=== PATIENT | female | born 1990 | race Caucasian/White ===

== ENCOUNTER 2017-04-11 10:29 | Emergency (ER) | payer OTHER ==
[~2017-04-11] VITALS: Ht 157.5 cm; Wt 77.2 kg
[~2017-04-11 10:29] MED LIST: ACET-704 PO; MUPI15CR TP; SULF1TAB24 PO
[2017-04-11 10:45] VITALS: BP 126/76
[2017-04-11] MEDS ORDERED: IV NORMAL SALINE 1,000ML 1,000 ML IV ONE (11:00)
[2017-04-11] MEDS ORDERED: PENICILLIN G BENZATHINE LA 1,200,000 UNIT/2 ML DISP.SYRIN. IM ONE (11:30)
[2017-04-11] MEDS ORDERED: DEXAMETHASONE SOD PHOS 10 MG/ML VIAL IV ONE (11:30)
--- NOTE | 2017-04-11 11:31 | PHYS DOC ---
Past History Past Medical History: Hypertension Past Surgical History: Other Alcohol Use: None Drug Use: None Adult General Chief Complaint Chief Complaint: SORE THROAT HPI HPI Patient is a 26 year old female who presents with sore throat. The patient reports sore throat since yesterday with painful swallowing. She denies fevers/ chills, nasal congestion/rhinorrhea, cough, chest pain, shortness of breath. Had diarrhea until yesterday, none today, denies nausea, vomiting, abdominal pain. Has had decreased PO intake because of diarrhea & now sore throat. She is previously healthy. No known ill contacts. Review of Systems Review of Systems Constitutional: Denies fever or chills Eyes: Denies change in visual acuity HENT: Denies nasal congestion, reports sore throat Respiratory: Denies cough or shortness of breath Cardiovascular: Denies chest pain GI: Denies abdominal pain, nausea, vomiting, reports diarrhea : Denies dysuria Musculoskeletal: Denies back pain or joint pain Integument: Denies rash Neurologic: Denies headache Current Medications Current Medications Current Medications Medications (Trade) Dose Ordered Sig/Esequiel Start Time Stop Time Status Last Admin Dose Admin Dexamethasone Sodium Phosphate (Decadron) 10 mg 1X ONCE 04/11/17 11:30 04/11/17 11:31 04/11/17 11:27 10 MG Penicillin G Benzathine (Bicillin L-A) 1,200,000 unit 1X ONCE 04/11/17 11:30 04/11/17 11:31 04/11/17 11:28 1,200,000 UNIT Sodium Chloride 1,000 ml @ 1,000 mls/hr 1X ONCE 04/11/17 11:00 04/11/17 11:59 04/11/17 11:00 1,000 MLS/HR Allergies Allergies Allergies Coded Allergies Type Severity Reaction Last Updated Verified lisinopril Allergy Intermediate Hives 08/15/16 Yes Physical Exam Physical Exam Constitutional: obese, no acute distress, non-toxic appearance. HENT: Normocephalic, atraumatic, bilateral external ears normal, oropharynx moist, posterior oropharynx erythematous with bilateral tonsillar enlargement & white exudate, nose normal. Eyes: conjunctiva normal, no discharge. Neck: supple, no stridor. no cervical lymphadenopathy. Cardiovascular: tachycardic 100s, regular, no murmurs, no edema. Lungs & Thorax: LCTAB, no wheezing, no respiratory distress. Abdomen: soft, nontender, nondistended. Skin: Warm, dry, no erythema, no rash. Back: No tenderness. Extremities: No tenderness, no edema. Neurologic: Alert and oriented X 3 Current Patient Data Vital Signs Vital Signs Date Time Temp Pulse Resp B/P (MAP) Pulse Ox O2 Delivery O2 Flow Rate FiO2 04/11/17 10:45 98.5 104 20 97 Room Air Lab Results Laboratory Tests Test 04/11/17 10:40 Group A Streptococcus Rapid Positive (NEGATIVE) EKG EKG [] Radiology/Procedures Radiology/Procedures [] Course & Med Decision Making Course & Med Decision Making Pertinent Labs and Imaging studies reviewed. (See chart for details) The patient presents with sore throat. She was afebrile but slightly tachycardic in low 100s, decreased PO intake. Gave IV fluids & decadron. Rapid strep was positive. Gave bicillin. She felt better after treatment here. Recommend rest, hydration, tylenol/ibuprofen for pain or fever. Follow up with PCP in 2-3 days if not improving. Come back for difficulty breathing or swallowing, or any otherwise worsening condition. Discharged home in stable condition. The patient also notes that she has red non-pruritic lesion to her umbilicus not improving with steroid cream. The area is mildly erythematous, no warmth, swelling, drainage. Gave clotrimazole cream, follow up with PCP if not improving in 2-3 days. [] Dragon Disclaimer Dragon Disclaimer This chart was dictated in whole or in part using Voice Recognition software in a busy, high-work load, and often noisy Emergency Department environment. It may contain unintended and wholly unrecognized errors or omissions. Departure Departure: Impression: Primary Impression: Strep pharyngitis Disposition: 01 HOME, SELF-CARE Condition: STABLE Patient Instructions: Strep Throat, [id number] Additional Instructions: You were seen in the emergency department today for strep throat. You were treated with antibiotics here. Please rest, drink fluids to stay hydrated, take Tylenol or ibuprofen for pain or fever. Follow-up as needed with primary care physician if not improving in 2-3 days. Return to the emergency department for difficulty breathing or swallowing, any otherwise worsening condition. Scripts Clotrimazole (CLOTRIMAZOLE) 15 Gm Cream..g. 1 MOHSEN TP BID, #30 GM Prov: DECLAN PARRA MD 04/11/17 DECLAN PARRA MD Apr 11, 2017 11:31
[2017-04-11] MEDS ORDERED: CLOT15CR4 TP (12:24)
== END 2017-04-11 12:27 | disposition home or self-care (01) ==
LOC: ER 10:29
DX: J02.0 Streptococcal pharyngitis (principal); R19.7 Diarrhea, unspecified; I10 Essential (primary) hypertension; Z88.8 Allergy status to other drugs, medicaments and biological substances
CPT/HCPCS: 87880; 96361; 96372; 96374; 99284; J0561; J1100; J7030

== ENCOUNTER 2017-05-08 14:50 | Emergency (ER) | payer OTHER ==
[~2017-05-08] VITALS: Ht 157.5 cm; Wt 83.9 kg
[~2017-05-08 14:50] MED LIST changes: +CLOT15CR4 TP
--- NOTE | 2017-05-08 14:58 | PHYS DOC ---
Past History Past Medical History: Hypertension Past Surgical History: Other Alcohol Use: None Drug Use: None Adult General Chief Complaint Chief Complaint: BACK PAIN OR INJURY HPI HPI Patient is a 26-year-old female presenting to the emergency department for evaluation of low back pain that is radiating down her right leg. She says that she has had low back pain issues for years and it has been reading down her left leg for years however today she had worsening right-sided back pain radiating down her right leg. 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 He says that she has no weakness numbness tingling bowel or bladder incontinence but she says it is very painful to put pressure on her right leg to the point she does not want to walk on her right leg because of the pain. She has never seen anyone for her back pain and never had any imaging done. Review of Systems Review of Systems Constitutional: Denies fever or chills [] Musculoskeletal: + back pain. No joint pain [] Neurologic: Denies focal weakness or sensory changes [] All other systems were reviewed and found to be within normal limits, except as documented in this note. Allergies Allergies Allergies Coded Allergies Type Severity Reaction Last Updated Verified lisinopril Allergy Intermediate Hives 08/15/16 Yes Physical Exam Physical Exam Constitutional: Well developed, well nourished, no acute distress, non-toxic appearance. [] Back: + R lumbar paraspinal tenderness, no CVA tenderness. [] Extremities: No tenderness, no cyanosis, no clubbing, ROM intact, no edema. [] Neurologic: Alert and oriented X 3, normal motor function, normal sensory function, no focal deficits noted. [] EKG EKG [] Radiology/Procedures Radiology/Procedures Lumbar spine, 3 views, 05/08/2017: History: Low back pain There is a minimal lumbar scoliosis. The lumbar vertebral heights are well-maintained. The intervertebral disc spaces are well preserved. No fracture or dislocation is identified. There is a small sclerotic focus projected over the right posterolateral aspect of the L3 vertebral body along the inferior base of the right pedicle. The paraspinous soft tissues are unremarkable. IMPRESSION: 1. No acute bony abnormality is detected. 2. Minimal lumbar scoliosis. 3. Small sclerotic focus in the L3 vertebral body. While this may be a bone island, a radionuclide bone scan may be useful in excluding an active process such as an osteoid osteoma or a blastic metastasis, if clinically indicated. DICTATED AND SIGNED BY: AMITA COLLINS MD DATE: 05/08/17 2906 Course & Med Decision Making Course & Med Decision Making Patient has 5 out of 5 strength in bilateral knee and ankle and big toe flexion extension and she has no red flag signs or symptoms necessitating an emergent MRI. She can walk it just hurts her to do so. Pain has improved in the emergency department after receiving Toradol [place] and Valium and Decadron. She was told to go home follow with her primary care provider on Thursday take ibuprofen for pain and will prescribe [place] and Valium for breakthrough symptoms. She was told to come back to the emergency Department immediately with worsening pain weakness incontinence or other general concerns. Patient aware and agreeable with plan for discharge and verbalized understanding of the above instructions. Dragon Disclaimer Dragon Disclaimer This electronic medical record was generated, in whole or in part, using a voice recognition dictation system. Departure Departure: Impression: Primary Impression: Back pain Additional Impression: Lumbar radiculopathy, acute Disposition: , SELF-CARE Condition: STABLE Referrals: PCP,UNKNOWN (PCP) Patient Instructions: Sciatica Additional Instructions: TAKE 400MG OF IBUPROFEN EVERY 6 HOURS AND THE NORCO FOR BREAKTHROUGH PAIN. FOLLOW WITH YOUR PCP SOON YOU CAN AND COME BACK TO THE ED FOR WORSENING PAIN, WEAKNESS, INCONTINENCE OR OTHER GENERAL CONCERNS. THANK YOU! Scripts Diazepam (VALIUM) 5 Mg Tablet 5 MG PO BID Y for SPASM, #10 TAB Prov: NIKKY CABALLERO DO 05/08/17 Hydrocodone Bit/Acetaminophen (NORCO 5-325 TABLET) 1 Each Tablet 1 TAB PO PRN Q6HRS Y for PAIN, #20 TAB 0 Refills Prov: NIKKY CABALLERO DO 05/08/17 Problem Qualifiers Primary Impression: Back pain Back pain location: low back pain Chronicity: acute Back pain laterality: right Sciatica presence: with sciatica Sciatica laterality: sciatica of right side Qualified Codes: M54.41 - Lumbago with sciatica, right side NIKKY CABALLERO DO May 08, 2017 14:58
[2017-05-08] MEDS ORDERED: HYDROcodone/APAP 5/325MG 1 TAB TABLET PO ONE (16:00)
[2017-05-08] MEDS ORDERED: diazePAM 5 MG TABLET PO ONE (16:00)
[2017-05-08] MEDS ORDERED: DEXAMETHASONE 4 MG TABLET PO ONE (16:00)
[2017-05-08] MEDS ORDERED: KETOROLAC 60 MG/2 ML VIAL. IM ONE (16:00)
--- NOTE | 2017-05-08 16:12 | RAD ---
Lumbar spine, 3 views, 05/08/2017: History: Low back pain There is a minimal lumbar scoliosis. The lumbar vertebral heights are well-maintained. The intervertebral disc spaces are well preserved. No fracture or dislocation is identified. There is a small sclerotic focus projected over the right posterolateral aspect of the L3 vertebral body along the inferior base of the right pedicle. The paraspinous soft tissues are unremarkable. IMPRESSION: 1. No acute bony abnormality is detected. 2. Minimal lumbar scoliosis. 3. Small sclerotic focus in the L3 vertebral body. While this may be a bone island, a radionuclide bone scan may be useful in excluding an active process such as an osteoid osteoma or a blastic metastasis, if clinically indicated.
[2017-05-08] MEDS ORDERED: DIAZ5TAB PO (16:19)
[2017-05-08] MEDS ORDERED: HYDR-971 PO (16:19)
[2017-05-08 16:38] VITALS: BP 135/73
== END 2017-05-08 16:35 | disposition home or self-care (01) ==
LOC: ER 14:50
DX: M54.16 Radiculopathy, lumbar region (principal); M54.41 Lumbago with sciatica, right side; I10 Essential (primary) hypertension; Z88.8 Allergy status to other drugs, medicaments and biological substances
CPT/HCPCS: 72100; 96372; 99284; J1885; J8540

== ENCOUNTER → 2017-08-19 | Outpatient (CLI) | payer OTHER ==
[~2017-08-19] MED LIST changes: +DIAZ5TAB PO; +HYDR-971 PO; +IOHEXOL 300 MG/ML 75 ML VIAL. IV ONE
--- NOTE | 2017-08-19 10:14 | RAD ---
CT Abdomen and Pelvis With Intravenous Contrast: History: Diarrhea for 4 months. Left flank pain. Comparison: None. Technique: After administration of oral and intravenous contrast, 75 mL Omnipaque-300, CT of the abdomen and pelvis was performed. Exposure: One or more of the following individualized dose reduction techniques were utilized for this examination: 1. Automated exposure control 2. Adjustment of the mA and/or kV according to patient size 3. Use of iterative reconstruction technique Findings: Liver, spleen, pancreas, gallbladder, and right adrenal gland are unremarkable. Left adrenal gland demonstrates 2.3 cm nodule. Bilateral kidneys enhance symmetrically. Appendix is without evidence of inflammation. No bowel obstruction or inflammation is seen. Urinary bladder is unremarkable. Uterus and adnexa have unremarkable CT appearance. No free air is identified. Small amount of physiologic free fluid is present in the pelvis. Impression: 1. No acute abnormality identified in the abdomen or pelvis to explain patient's symptoms. 2. 2.3 cm left adrenal nodule. If no history of malignancy, most likely etiology is adenoma. If clinically indicated, further evaluation could be made with adrenal mass protocol MRI versus CT. Electronically signed by: Kamlesh Augustine MD (08/19/2017 10:11 AM) [place] [id number]
== END | disposition home or self-care (01) ==
LOC: CT 08:25
PROVIDERS: ATTEND Nurse Practitioner Family
DX: R10.9 Unspecified abdominal pain (principal); R11.0 Nausea; R19.7 Diarrhea, unspecified; Z83.79 Family history of other diseases of the digestive system
CPT/HCPCS: 74177

== ENCOUNTER 2018-04-26 18:29 | Emergency (ER) | payer OTHER ==
[~2018-04-26] VITALS: Ht 157.5 cm; Wt 77.2 kg
[~2018-04-26 18:29] MED LIST changes: +HYDR-3165 PO; -HYDR-971 PO; -IOHEXOL 300 MG/ML 75 ML VIAL. IV ONE
[2018-04-26] MEDS ORDERED: KETOROLAC 60 MG/2 ML VIAL. IM ONE (19:00)
[2018-04-26 19:23] LABS: BASO % 0 % (0-3); EOS # 0.1 x10^3/uL (0.0-0.7); EOS % 1 % (0-3); HEMATOCRIT 42.1 % (36.0-47.0); HEMOGLOBIN 14.7 g/dL (12.0-15.5); LYMPH # 3.1 x10^3/uL (1.0-4.8); LYMPH % 28 % (24-48); MEAN CORPUSCULAR HEMOGLOBIN 31 pg (25-35); MEAN CORPUSCULAR HGB CONC 35 g/dL (31-37); MEAN CORPUSCULAR VOLUME 89 fL (79-100); MONO # 0.6 x10^3/uL (0.0-1.1); MONO % 5 % (0-9); NEUT # 7.2 x10^3uL (1.8-7.7); NEUT % 65 % (31-73); PLATELET COUNT 412 x10^3/uL (140-400); RED BLOOD COUNT 4.72 x10^6/uL (3.50-5.40); RED CELL DISTRIBUTION WIDTH 12.3 % (11.5-14.5)
--- NOTE | 2018-04-26 19:23 | PHYS DOC ---
Adult General Chief Complaint Chief Complaint CHEST PAIN HPI HPI 27 years old female presented to the emergency department with left back chest pain. Described as a sharp pleuritic in nature no fever no chills no urgency no frequency no hematuria, He experienced this pain in the past that resulted on its own Position not related to the pain Review of Systems Review of Systems Constitutional: Denies fever or chills [] Eyes: Denies change in visual acuity, redness, or eye pain [] HENT: Denies nasal congestion or sore throat [] Respiratory: Denies cough or shortness of breath [] Cardiovascular: No additional information not addressed in HPI [] GI: Denies abdominal pain, nausea, vomiting, bloody stools or diarrhea [] : Denies dysuria or hematuria [] Musculoskeletal: Denies back pain or joint pain [] Integument: Denies rash or skin lesions [] Neurologic: Denies headache, focal weakness or sensory changes [] Endocrine: Denies polyuria or polydipsia [] All other systems were reviewed and found to be within normal limits, except as documented in this note. Current Medications Current Medications Current Medications Medications (Trade) Dose Ordered Sig/Esequiel Start Time Stop Time Status Last Admin Dose Admin Ketorolac Tromethamine (Toradol Im) 60 mg 1X ONCE 04/26/18 19:00 04/26/18 19:01 DC 04/26/18 19:04 60 MG Allergies Allergies Allergies Coded Allergies Type Severity Reaction Last Updated Verified lisinopril Allergy Intermediate Hives 05/08/17 Yes Physical Exam Physical Exam Constitutional: Well developed, well nourished, no acute distress, non-toxic appearance. [] HENT: Normocephalic, atraumatic, bilateral external ears normal, oropharynx moist, no oral exudates, nose normal. [] Eyes: PERRLA, EOMI, conjunctiva normal, no discharge. [] Neck: Normal range of motion, no tenderness, supple, no stridor. [] Cardiovascular:Heart rate regular rhythm, no murmur [] Lungs & Thorax: Bilateral breath sounds clear to auscultation []chest wall tenderness on the back Abdomen: Bowel sounds normal, soft, no tenderness, no masses, no pulsatile masses. [] Skin: Warm, dry, no erythema, no rash. [] Back: No tenderness, no CVA tenderness. [] Extremities: No tenderness, no cyanosis, no clubbing, ROM intact, no edema. [] Neurologic: Alert and oriented X 3, normal motor function, normal sensory function, no focal deficits noted. [] Psychologic: Affect normal, judgement normal, mood normal. [] Current Patient Data Vital Signs Vital Signs Date Time Temp Pulse Resp B/P (MAP) Pulse Ox O2 Delivery O2 Flow Rate FiO2 04/26/18 18:35 99.3 105 18 95 Room Air Lab Results Laboratory Tests Test 04/26/18 18:57 04/26/18 19:08 White Blood Count 11.0 x10^3/uL (4.0-11.0) Red Blood Count 4.72 x10^6/uL (3.50-5.40) Hemoglobin 14.7 g/dL (12.0-15.5) Hematocrit 42.1 % (36.0-47.0) Mean Corpuscular Volume 89 fL (79-100) Mean Corpuscular Hemoglobin 31 pg (25-35) Mean Corpuscular Hemoglobin Concent 35 g/dL (31-37) Red Cell Distribution Width 12.3 % (11.5-14.5) Platelet Count 412 x10^3/uL (140-400) H Neutrophils (%) (Auto) 65 % (31-73) Lymphocytes (%) (Auto) 28 % (24-48) Monocytes (%) (Auto) 5 % (0-9) Eosinophils (%) (Auto) 1 % (0-3) Basophils (%) (Auto) 0 % (0-3) Neutrophils # (Auto) 7.2 x10^3uL (1.8-7.7) Lymphocytes # (Auto) 3.1 x10^3/uL (1.0-4.8) Monocytes # (Auto) 0.6 x10^3/uL (0.0-1.1) Eosinophils # (Auto) 0.1 x10^3/uL (0.0-0.7) Basophils # (Auto) 0.0 x10^3/uL (0.0-0.2) D-Dimer (Aparna) 0.33 mg/L (0.00-0.50) Sodium Level 138 mmol/L (136-145) Potassium Level 3.8 mmol/L (3.5-5.1) Chloride Level 100 mmol/L (98-107) Carbon Dioxide Level 27 mmol/L (21-32) Anion Gap 11 (6-14) Blood Urea Nitrogen 18 mg/dL (7-20) Creatinine 0.8 mg/dL (0.6-1.0) Estimated GFR (Cockcroft-Gault) 85.4 Glucose Level 111 mg/dL (70-99) H Calcium Level 9.0 mg/dL (8.5-10.1) POC Urine HCG, Qualitative hcg negative (Negative) EKG EKG [] Radiology/Procedures Radiology/Procedures [] Course & Med Decision Making Course & Med Decision Making Pertinent Labs and Imaging studies reviewed. (See chart for details) [] Final Impression Final Impression [] Problems: (1) Back pain Qualifiers: Qualified Codes: M54.6 - Pain in thoracic spine Dragon Disclaimer Dragon Disclaimer This electronic medical record was generated, in whole or in part, using a voice recognition dictation system. RAQUEL SIMMS MD Apr 26, 2018 19:23
[2018-04-26 19:31] LABS: CREATININE 0.8 mg/dL (0.6-1.0); GFR 85.4; POTASSIUM 3.8 mmol/L (3.5-5.1)
[2018-04-26 19:38] VITALS: BP 126/80
[2018-04-26] MEDS ORDERED: ACET-704 PO (19:55)
[2018-04-26] MEDS ORDERED: PRED20TA PO (19:55)
--- NOTE | 2018-04-26 19:58 | RAD ---
PROCEDURE: CHEST PA LATERAL CLINICAL INDICATION: Left sided chest and upper back pain COMPARISON: None FINDINGS: No pneumothorax identified. Cardiac and mediastinal contours unremarkable. No pulmonary consolidation or acute airspace disease. No acute osseous abnormalities identified. IMPRESSION: No pulmonary consolidation or acute airspace disease. Electronically signed by: Jaycob Guzmán DO (04/26/2018 7:55 PM) [facility]
== END 2018-04-26 20:06 | disposition home or self-care (01) ==
LOC: ER 18:29
DX: M54.6 Pain in thoracic spine (principal); R07.89 Other chest pain; Z88.8 Allergy status to other drugs, medicaments and biological substances
CPT/HCPCS: 36415; 71046; 80048; 81025; 85025; 85379; 96372; 99284; J1885

== ENCOUNTER 2018-07-08 08:51 | Inpatient (IN) | payer OTHER ==
[~2018-07-08] VITALS: Ht 157.5 cm; Wt 86.7 kg
[~2018-07-08 08:51] MED LIST changes: +PRED20TA PO
[2018-07-08] MEDS ORDERED: IV NORMAL SALINE 1,000ML 1,000 ML IV SCH (09:17)
[2018-07-08] MEDS ORDERED: IOHEXOL 300 MG/ML 75 ML VIAL. IV ONE (09:30)
--- NOTE | 2018-07-08 09:33 | PHYS DOC ---
Past History Past Medical History: Hypertension Past Surgical History: Tubal ligation Smoking: Non-smoker Alcohol Use: None Drug Use: None Adult General Chief Complaint Chief Complaint: ABDOMINAL PAIN HPI HPI Patient is a 27 year old female who presents with complaining of abdominal pain. Patient complaining of sudden onset of generalized abdominal pain that started 2 days ago as a constant pain that getting more localizing lower abdomen today. Patient complaining of one episode of vomiting 3 days ago with constant nausea and decrease of appetite. Patient states she did not have bowel movement for 2 days and took a laxative with having several episodes of bowel movement without change of her pain. Patient states she had fever up to 101 yesterday. Patient denies urinary symptoms, vaginal discharge, history of the same pain. Patient rated her pain 10 over 10. Patient had history of tubal ligation and started her menstruation 4 days ago. Review of Systems Review of Systems Constitutional: Reports fever Eyes: Denies change in visual acuity, redness, or eye pain [] HENT: Denies nasal congestion or sore throat [] Respiratory: Denies cough or shortness of breath [] Cardiovascular: No additional information not addressed in HPI [] GI: Reports abdominal pain, nausea, vomiting, constipation, denies bloody stools or diarrhea [] : Denies dysuria or hematuria [] Musculoskeletal: Denies back pain or joint pain [] Integument: Denies rash or skin lesions [] Neurologic: Denies headache, focal weakness or sensory changes [] Endocrine: Denies polyuria or polydipsia [] All other systems were reviewed and found to be within normal limits, except as documented in this note. Current Medications Current Medications Current Medications Medications (Trade) Dose Ordered Sig/Esequiel Start Time Stop Time Status Last Admin Dose Admin Iohexol (Omnipaque 300 Mg/ml) 75 ml 1X ONCE 07/08/18 09:30 07/08/18 09:31 DC Ketorolac Tromethamine (Toradol 30mg Vial) 30 mg 1X ONCE 07/08/18 09:45 07/08/18 09:46 Ondansetron HCl (Zofran) 4 mg 1X ONCE 07/08/18 09:45 07/08/18 09:46 Sodium Chloride 1,000 ml @ 1,000 mls/hr Q1H 07/08/18 09:17 07/08/18 10:16 Allergies Allergies Allergies Coded Allergies Type Severity Reaction Last Updated Verified lisinopril Allergy Intermediate Hives 05/08/17 Yes Physical Exam Physical Exam Constitutional: Well developed, well nourished, moderate distress, non-toxic appearance. [] HENT: Normocephalic, atraumatic, oropharynx dry, no oral exudates, nose normal. [] Eyes: PERRLA, EOMI, conjunctiva normal, no discharge. [] Neck: Normal range of motion, no tenderness, supple, no stridor. [] Cardiovascular:Heart rate regular rhythm, no murmur [] Lungs & Thorax: Bilateral breath sounds clear to auscultation [] Abdomen: Bowel sounds normal, soft, lower abdominal guarding, no tenderness, no masses, no pulsatile masses. [] Skin: Warm, dry, no erythema, no rash. [] Back: No tenderness, no CVA tenderness. [] Extremities: No tenderness, no cyanosis, no clubbing, ROM intact, no edema. [] Neurologic: Alert and oriented X 3, normal motor function, normal sensory function, no focal deficits noted. [] Psychologic: Affect normal, judgement normal, mood normal. [] Current Patient Data Vital Signs Vital Signs Date Time Temp Pulse Resp B/P (MAP) Pulse Ox O2 Delivery O2 Flow Rate FiO2 07/08/18 09:06 98.3 118 16 98 Room Air EKG EKG [] Radiology/Procedures Radiology/[place] [address] IMAGING REPORT Signed PATIENT: GONZALO JHAVERI ACCOUNT: [id number] : 1990 LOCATION: ER AGE: 27 SEX: F EXAM STATUS: REG ER ORD. PHYSICIAN: PRATIK MENDOSA MD REASON: abdominal pain PROCEDURE: CT ABD PELV W/ IV CONTRST ONLY PQRS Compliance Statement: One or more of the following individualized dose reduction techniques were utilized for this examination: 1. Automated exposure control 2. Adjustment of the mA and/or kV according to patient size 3. Use of iterative reconstruction technique CT ABD PELV W/ IV CONTRST ONLY Clinical Indication: LOW ABDOMINAL PAIN WITH CRAMPING AND LOW GRADE FEVER. Comparison: CT abdomen and pelvis with contrast, August 19, 2017. Technique: Helical CT imaging of the abdomen and pelvis is performed after 75 cc of Omnipaque 300 IV contrast. Oral contrast not given. Findings: Lung bases are clear. Cardiac size normal. Liver, gallbladder, spleen, pancreas, and right adrenal gland are normal. Inferior left adrenal nodule measures 1.7 x 2.7 cm, previously 1.5 x 2.4 cm. The abdominal aorta is normal caliber. There are several subcentimeter retroperitoneal and iliac chain lymph nodes, similar. There is no adenopathy. Kidneys enhance symmetrically, no hydronephrosis. Stomach unremarkable. Subcentimeter mesenteric lymph nodes. No dilated small bowel. Small fat-containing a buckle hernia. The appendix is normal. Portions of the colon are not well distended accentuating wall thickness and limiting evaluation. Cannot exclude mild wall thickening of the sigmoid colon. There is no surrounding inflammation. Retroverted uterus. Moderate pelvic free fluid. Multiple small left ovarian follicles. Question 2.5 cm right ovary functional cyst. Right osteitis condensans ilii. IMPRESSION: 1. Cannot exclude mild wall thickening of the sigmoid colon. Considerations include mild proctitis versus pseudothickening due to lack of distention. 2. Left adrenal nodule has mildly increased in size. Recommend outpatient adrenal protocol MRI. 3. Moderate pelvic free fluid. There are bilateral ovary functional cysts. Findings likely physiologic. Electronically signed by: Noam Mei MD (07/08/2018 10:14 AM) [id number] DICTATED AND SIGNED BY: NOAM MEI MD DATE: 07/08/18 1004 CC: ROBBY POMPA; PRATIK MENDOSA MD ~ Course & Med Decision Making Course & Med Decision Making Pertinent Labs and Imaging studies reviewed. (See chart for details) Evaluation of patient in ER showed 27-year-old male patient with complaining of abdominal pain for 2 days and fever and nausea and vomiting. Patient had abdominal guarding without fever in ER. Patient had leukocytosis and tachycardia. CT showed inflammation of fall of sigmoid and fluid off. This is a physiologic change. Patient treated with IV fluid, Zofran, Toradol and morphine and felt better. After CT report fracture and Cipro was started. UA is pending. Dr. Ortega accepted admission at 1100. Tenzin Disclaimer Tenzin Disclaimer This electronic medical record was generated, in whole or in part, using a voice recognition dictation system. Departure Departure: Impression: Primary Impression: Abdominal pain Additional Impressions: Proctitis Leukocytosis Adrenal nodule Ovarian cyst Free fluid in pelvis Back pain Disposition: ADMITTED INPATIENT (@1103) Admitting Physician: Radha Ortega (accepted admission at 11 00) Condition: IMPROVED Referrals: ROBBY POMPA (PCP) Problem Qualifiers PRATIK MENDOSA MD Jul 08, 2018 09:33
[2018-07-08 09:43] LABS: BASO % 0 % (0-3); EOS # 0.1 x10^3/uL (0.0-0.7); EOS % 1 % (0-3); HEMATOCRIT 38.5 % (36.0-47.0); HEMOGLOBIN 13.3 g/dL (12.0-15.5); LYMPH # 1.3 x10^3/uL (1.0-4.8); LYMPH % 10 % (24-48); MEAN CORPUSCULAR HEMOGLOBIN 31 pg (25-35); MEAN CORPUSCULAR HGB CONC 35 g/dL (31-37); MEAN CORPUSCULAR VOLUME 89 fL (79-100); MONO # 0.8 x10^3/uL (0.0-1.1); MONO % 6 % (0-9); NEUT # 11.9 x10^3uL (1.8-7.7); NEUT % 84 % (31-73); PLATELET COUNT 361 x10^3/uL (140-400); RED BLOOD COUNT 4.31 x10^6/uL (3.50-5.40); RED CELL DISTRIBUTION WIDTH 12.1 % (11.5-14.5); WHITE BLOOD COUNT 14.1 x10^3/uL (4.0-11.0)
[2018-07-08] MEDS ORDERED: KETOROLAC 30 MG/ML VIAL. IV ONE (09:45)
[2018-07-08] MEDS ORDERED: ONDANSETRON PF 4 MG/2 ML VIAL. IV ONE (09:45)
[2018-07-08 09:51] LABS: ALBUMIN 3.9 g/dL (3.4-5.0); ALBUMIN/GLOBULIN RATIO 0.9 (1.0-1.7); CALCIUM 8.9 mg/dL (8.5-10.1); CREATININE 0.8 mg/dL (0.6-1.0); GFR 85.4; POTASSIUM 3.7 mmol/L (3.5-5.1); TOTAL BILIRUBIN 0.9 mg/dL (0.2-1.0); TOTAL PROTEIN 8.1 g/dL (6.4-8.2)
--- NOTE | 2018-07-08 10:18 | RAD ---
PQRS Compliance Statement: One or more of the following individualized dose reduction techniques were utilized for this examination: 1. Automated exposure control 2. Adjustment of the mA and/or kV according to patient size 3. Use of iterative reconstruction technique CT ABD PELV W/ IV CONTRST ONLY Clinical Indication: LOW ABDOMINAL PAIN WITH CRAMPING AND LOW GRADE FEVER. Comparison: CT abdomen and pelvis with contrast, August 19, 2017. Technique: Helical CT imaging of the abdomen and pelvis is performed after 75 cc of Omnipaque 300 IV contrast. Oral contrast not given. Findings: Lung bases are clear. Cardiac size normal. Liver, gallbladder, spleen, pancreas, and right adrenal gland are normal. Inferior left adrenal nodule measures 1.7 x 2.7 cm, previously 1.5 x 2.4 cm. The abdominal aorta is normal caliber. There are several subcentimeter retroperitoneal and iliac chain lymph nodes, similar. There is no adenopathy. Kidneys enhance symmetrically, no hydronephrosis. Stomach unremarkable. Subcentimeter mesenteric lymph nodes. No dilated small bowel. Small fat-containing a buckle hernia. The appendix is normal. Portions of the colon are not well distended accentuating wall thickness and limiting evaluation. Cannot exclude mild wall thickening of the sigmoid colon. There is no surrounding inflammation. Retroverted uterus. Moderate pelvic free fluid. Multiple small left ovarian follicles. Question 2.5 cm right ovary functional cyst. Right osteitis condensans ilii. IMPRESSION: 1. Cannot exclude mild wall thickening of the sigmoid colon. Considerations include mild proctitis versus pseudothickening due to lack of distention. 2. Left adrenal nodule has mildly increased in size. Recommend outpatient adrenal protocol MRI. 3. Moderate pelvic free fluid. There are bilateral ovary functional cysts. Findings likely physiologic. Electronically signed by: Noam Mei MD (07/08/2018 10:14 AM) [id number]
[2018-07-08] MEDS ORDERED: IV NORMAL SALINE 1,000ML 1,000 ML IV ONE (11:00)
[2018-07-08] MEDS ORDERED: MORPHINE SULFATE 4 MG/ML DISP.SYRIN. IV ONE (11:15)
[2018-07-08] MEDS ORDERED: CIPROFLOXACIN 400MG PREMIX 200 ML IV ONE (11:30)
[2018-07-08 11:43] LABS: BILIRUBIN,URINE NEG (NEG); CLARITY,URINE CLOUDY; COLOR,URINE AMBER; GLUCOSE,URINE NEG (NEG)
[2018-07-08 11:44] LABS: BACTERIA,URINE 0 /HPF (0-FEW); NITRITE,URINE NEG (NEG); SQUAMOUS EPITHELIAL CELL,UR FEW /LPF; UROBILINOGEN,URINE 0.2 mg/dL (0.2 mg/dL)
[2018-07-08 12:29] VITALS: BP 141/84
[2018-07-08] MEDS ORDERED: ONDANSETRON PF 4 MG/2 ML VIAL. IV PRN (13:45)
[2018-07-08] MEDS ORDERED: MORPHINE SULFATE 4 MG/ML DISP.SYRIN. IV PRN (13:45)
--- NOTE | 2018-07-08 14:16 | HP ---
ADMIT DATE: 07/08/2018 HISTORY OF PRESENT ILLNESS: The patient is a 27-year-old female patient who came to the Emergency Room with a complaint of lower abdominal pain that started about 2 days ago associated with nausea, vomiting as well as fever up to 101.7. She started her periods about 4 days ago, specifically last Thursday; however, she has also had episodes of pain. She thought she was constipated and took some laxative and she has had multiple episodes of loose bowel movement. She denied any dysuria, frequency or hematuria. She was evaluated in the Emergency Room and her lab work showed that she has leukocytosis, but lactic acid was normal at 1.1. The CT scan of the abdomen and pelvis showed that the patient has mild wall thickening of the sigmoid colon consideration included mild proctitis versus pseudo thickening due to lack of distention. She apparently has left adrenal nodule that has mildly increased in size, recommended outpatient adrenal protocol MRI. She has also moderate pelvic free fluid. There are bilateral ovary functional cysts finding likely physiology. The patient was started on IV Flagyl as well as ciprofloxacin and was admitted with diagnosis of proctitis. PAST MEDICAL HISTORY: Significant for hypertension for which she is on metoprolol 12.5 mg twice a day. PAST SURGICAL HISTORY: Significant for tubal ligation 2 years ago, wisdom teeth extraction 2 years ago. ALLERGIES: SHE IS ALLERGIC TO LISINOPRIL. MEDICATIONS: She is on metoprolol 12.5 mg twice a day. FAMILY HISTORY: She has 3 sisters and 1 brother. One of her sister has irritable bowel syndrome. Her father has Crohn's disease and mother has Amanda's thyroiditis. SOCIAL HISTORY: She is . She has between her and her about 6 children. She has 4 children of her own. She does not smoke, drink alcohol or recreational drugs. She is a [id number] mom. PHYSICAL EXAMINATION: GENERAL: When I examined her this afternoon, she looked well and was clearly in no apparent respiratory distress. No pallor, jaundice, cyanosis, or thyromegaly. No jugular venous distention. No lower limb edema. VITAL SIGNS: Her heart rate was 72. Her heart rate on arrival to the Emergency Room was 118, blood pressure was 137/78, temperature was 98.3, respiratory rate was 16, and oxygen saturation was 98% on room air. HEAD, EYES, EARS, NOSE AND THROAT: Showed normocephalic, atraumatic. NECK: Supple. HEART: Showed normal first and second heart sounds. No gallop, rub or murmur. CHEST: Clear to auscultation. No crepitation or rhonchi. ABDOMEN: Distended, soft, nontender. She has mild tenderness in the suprapubic area, but no guarding or rigidity. No organomegaly. All hernial orifice intact. Bowel sounds normal. NEUROLOGIC: She was awake, alert, responding appropriately. All cranial nerves are intact. EXTREMITIES: She moves extremities without difficulty. She ambulates without assistance or assistive devices. LABORATORY DATA: Showed a white cell count of 14,100, hemoglobin 13.3, hematocrit 38.5, MCV 89 and platelet count of 361,000. Her chemistry showed a serum sodium 138, potassium 3.7, chloride 101, bicarbonate 28, anion gap of 9, BUN 11, creatinine 0.8, estimated GFR was 85 mL per minute. Her glucose 114, calcium was 8.9, lactic acid was only 1.1. Total bilirubin, AST, ALT, alkaline phosphatase were normal. Total protein was 8.1, albumin was 3.9. Lipase was only 77. Her urinalysis showed the urine was cloudy with a pH of 6, specific gravity of 1.010. There was small amount of protein, negative for glucose, ketones, large amount of blood. Her urine was negative for nitrite and leukocyte esterase. There was 11-20 rbc's, 1-4 wbc's, and no bacteria. As I stated, her CT scan of the abdomen and pelvis showed that the liver, gallbladder, spleen, pancreas and right adrenal gland are normal. Inferior left adrenal nodule measures about 1.7 to 2.7 cm, previously 1.5 to 2.4 cm. The abdominal aorta is normal in caliber. There are several subcentimeter retroperitoneal and iliac chain lymph nodes similar. There is no adenopathy. Kidney enhances symmetrically. No hydronephrosis. Stomach unremarkable. She has subcentimeter mesenteric lymph nodes. No dilated small bowel. Small fat containing buccal hernia. The appendix is normal. Portion of the colon are not well descended. Accentuating wall thickness and limiting evaluation. Cannot exclude mild wall thickening of the sigmoid colon. There is no surrounding inflammation, retroverted uterus, moderate pelvic free fluid. Multiple small left ovarian follicles, question 2.5 cm right ovarian functional cyst. 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 PLAN: To continue with IV antibiotic in the form of ciprofloxacin and Flagyl. I will add the sed rate and CRP and we will follow her closely. I am not sure whether pelvic inflammatory disease is taking part here. I will add sed rate and CRP to her labs today and repeat her labs tomorrow and we will follow her closely. RAJAT BERMAN MD DR: CROW/sheri JOB#: [id number] / [id number]
[2018-07-08] MEDS: IV NORMAL SALINE 1,000ML 1,000 ML IV SCH ×2 (14:39→21:14)
[2018-07-08 15:15] VITALS: BP 126/79
[2018-07-08] MEDS ORDERED: METO25TA4 PO (16:02)
[2018-07-08] MEDS: ACETAMINOPHEN 325 MG TABLET PO PRN (17:04)
[2018-07-08 19:24] VITALS: BP 129/81
[2018-07-08] MEDS ORDERED: METOPROLOL TART IMMED RELEASE 25 MG TABLET PO SCH (21:00)
[2018-07-08] MEDS: CIPROFLOXACIN 400MG PREMIX 200 ML IV SCH (21:14)
[2018-07-08] MEDS: METOPROLOL TART IMMED RELEASE 25 MG TABLET PO SCH (21:15)
[2018-07-08 22:04] VITALS: BP 116/76
[2018-07-09] MEDS: IV NORMAL SALINE 1,000ML 1,000 ML IV SCH ×3 (04:53→21:32)
[2018-07-09] MEDS ORDERED: IBUPROFEN 800 MG TABLET. PO PRN (05:00)
[2018-07-09 05:43] VITALS: BP 105/67
[2018-07-09 06:26] LABS: BASO # 0.1 x10^3/uL (0.0-0.2); BASO % 1 % (0-3); EOS # 0.1 x10^3/uL (0.0-0.7); EOS % 1 % (0-3); HEMATOCRIT 32.6 % (36.0-47.0); HEMOGLOBIN 11.5 g/dL (12.0-15.5); LYMPH # 1.6 x10^3/uL (1.0-4.8); LYMPH % 15 % (24-48); MEAN CORPUSCULAR HEMOGLOBIN 32 pg (25-35); MEAN CORPUSCULAR HGB CONC 35 g/dL (31-37); MEAN CORPUSCULAR VOLUME 90 fL (79-100); MONO # 0.9 x10^3/uL (0.0-1.1); MONO % 8 % (0-9); NEUT # 8.2 x10^3uL (1.8-7.7); NEUT % 75 % (31-73); PLATELET COUNT 312 x10^3/uL (140-400); RED BLOOD COUNT 3.64 x10^6/uL (3.50-5.40); RED CELL DISTRIBUTION WIDTH 12.5 % (11.5-14.5); WHITE BLOOD COUNT 10.8 x10^3/uL (4.0-11.0)
[2018-07-09 06:38] LABS: ALBUMIN 3.1 g/dL (3.4-5.0); ALBUMIN/GLOBULIN RATIO 0.9 (1.0-1.7); CALCIUM 8.1 mg/dL (8.5-10.1); CREATININE 0.7 mg/dL (0.6-1.0); GFR 99.6; POTASSIUM 3.7 mmol/L (3.5-5.1); TOTAL BILIRUBIN 0.8 mg/dL (0.2-1.0); TOTAL PROTEIN 6.7 g/dL (6.4-8.2)
[2018-07-09] MEDS: LACTOBACILLUS RHAMNOSUS GG 1 CAPSULE. PO SCH ×2 (08:52→21:31)
[2018-07-09] MEDS: ACETAMINOPHEN 325 MG TABLET PO PRN ×3 (08:53→21:36)
[2018-07-09] MEDS: CIPROFLOXACIN 400MG PREMIX 200 ML IV SCH ×2 (08:53→21:31)
[2018-07-09] MEDS ORDERED: PANTOPRAZOLE 40 MG TABLET. PO ONE (10:30)
[2018-07-09 11:46] VITALS: BP 112/75
--- NOTE | 2018-07-09 13:26 | PN ---
DATE: 07/09/2018 SUBJECTIVE: The patient is resting, slightly propped up in bed, in no apparent distress. She stated that her pain is much better. She continued to have pain with movement, but no pain when she is in bed. She has had no further episodes of nausea, vomiting. No fevers, chills, rigors. PHYSICAL EXAMINATION: GENERAL: When I examined her, she looked well and was clearly in no apparent respiratory distress. VITAL SIGNS: Her heart rate was 74, blood pressure 105/67, temperature was 98, respiratory rate was 16 and oxygen saturation was 99% on room air. The rest of clinical examination is unremarkable and stable. Her intake was 3300, no output was recorded. LABORATORY DATA: This morning showed a serum sodium 141, potassium 3.7, chloride 106, bicarbonate 26, anion gap of 9, BUN 6, creatinine 0.7, estimated GFR was 99 mL per minute. Her glucose was 109. Total bilirubin 8.1, lactic acid was 1.1, calcium was 8.1. Total bilirubin, AST, ALT, alkaline phosphatase were normal. Total protein was 6.7, albumin 3.1. Her white cell count was 10,800, hemoglobin 11.5, hematocrit 32.6, MCV 90 and platelet count 312,000. Her sedimentation rate yesterday was 48 mm per hour and C-reactive protein was 134 mg/dL. ASSESSMENT: Proctocolitis, which we continue her IV antibiotic in the form of Cipro and Flagyl. She also has heartburn, we will start her on Protonix. I advised her to avoid ibuprofen. Continue only on Tylenol 650 every 4 hours and repeat all her labs tomorrow and if she remains stable she can be discharged on this treatment as an outpatient. RAJAT BERMAN MD DR: CROW/sheri JOB#: [id number] / [id number]
[2018-07-09 15:31] VITALS: BP 121/86
[2018-07-09 19:07] VITALS: BP 124/82
[2018-07-09] MEDS: METOPROLOL TART IMMED RELEASE 25 MG TABLET PO SCH (21:32)
[2018-07-09 22:16] VITALS: BP 116/80
[2018-07-10 05:34] VITALS: BP 120/74
[2018-07-10 06:24] LABS: BASO % 0 % (0-3); CALCIUM 8.1 mg/dL (8.5-10.1); CREATININE 0.6 mg/dL (0.6-1.0); EOS # 0.1 x10^3/uL (0.0-0.7); EOS % 1 % (0-3); HEMATOCRIT 33.4 % (36.0-47.0); HEMOGLOBIN 11.8 g/dL (12.0-15.5); LYMPH # 1.5 x10^3/uL (1.0-4.8); LYMPH % 14 % (24-48); MEAN CORPUSCULAR HEMOGLOBIN 31 pg (25-35); MEAN CORPUSCULAR HGB CONC 35 g/dL (31-37); MEAN CORPUSCULAR VOLUME 88 fL (79-100); MONO # 0.6 x10^3/uL (0.0-1.1); MONO % 6 % (0-9); NEUT % 78 % (31-73); PLATELET COUNT 347 x10^3/uL (140-400); POTASSIUM 3.8 mmol/L (3.5-5.1); RED BLOOD COUNT 3.79 x10^6/uL (3.50-5.40); RED CELL DISTRIBUTION WIDTH 12.3 % (11.5-14.5); WHITE BLOOD COUNT 10.3 x10^3/uL (4.0-11.0)
[2018-07-10] MEDS ORDERED: PANTOPRAZOLE 40 MG TABLET. PO SCH (07:30)
[2018-07-10] MEDS: LACTOBACILLUS RHAMNOSUS GG 1 CAPSULE. PO SCH (07:33)
[2018-07-10] MEDS: ACETAMINOPHEN 325 MG TABLET PO PRN (07:37)
[2018-07-10] MEDS: CIPROFLOXACIN 400MG PREMIX 200 ML IV SCH (08:38)
[2018-07-10] MEDS ORDERED: CIPR500T94 PO (10:28)
[2018-07-10] MEDS ORDERED: METR500T PO (10:28)
[2018-07-10 10:33] VITALS: BP 122/81
--- NOTE | 2018-07-10 10:40 | DS ---
DATE OF DISCHARGE: 07/10/2018 HOSPITAL COURSE: The patient is resting, slightly propped up in bed, in no apparent distress. Questioning her denied any complaint, in particular she had no more abdominal pain. No diarrhea, no vomiting. Nursing staff did not voice any concern that she had an eventful night. PHYSICAL EXAMINATION: GENERAL: She looked well and was clearly in no apparent respiratory distress. No pallor, jaundice, cyanosis, or thyromegaly. No jugular venous distension. No limb edema. VITAL SIGNS: Her heart rate was 96, blood pressure 120/74, temperature was 98.9, respiratory rate was 18 and oxygen saturation was 99% on room air. HEAD, EYES, EARS, NOSE AND THROAT: Showed normocephalic, atraumatic. NECK: Supple. HEART: Showed normal first and second heart sounds. No gallop, rub or murmur. CHEST: Clear to auscultation. No crepitation or rhonchi. ABDOMEN: Distended, soft, nontender. NEUROLOGIC: She was awake, alert, responding appropriately. All cranial nerves intact. EXTREMITIES: She moves extremities without difficulty. She ambulates without assistance or assistive devices. LABORATORY DATA: Her serum sodium this morning was 141, potassium 3.8, chloride 106, bicarbonate 27, anion gap of 8, BUN 5, creatinine 0.6, estimated GFR was 119 mL per minute. Her glucose 107 and calcium was 8.1. Her white cell count was 10,300, hemoglobin 11.8, hematocrit 33.4, MCV 88 and platelet count 347,000. Urinalysis is unremarkable. DISCHARGE MEDICATIONS: She was discharged home to continue on metoprolol tartrate half a tablet at bedtime for hypertension. She will be discharged also on ciprofloxacin 500 mg twice a day for 7 days and Flagyl 500 mg 3 times a day for 7 days. FINAL DISCHARGE DIAGNOSES: Acute proctocolitis resolving, hypertension. The patient was warned about the interaction between Flagyl and alcohol. She should avoid drinking alcohol while taking her Flagyl. RAJAT BERMAN MD DR: CROW/sheri JOB#: [id number] / [id number]
== END 2018-07-10 10:51 | disposition home or self-care (01) | DRG 872 ==
LOC: ER 08:51 → 1 SOUTH 12:17
PROVIDERS: ADMIT Internal Medicine; ATTEND Internal Medicine
DX: A41.9 Sepsis, unspecified organism (principal); K62.89 Other specified diseases of anus and rectum; N83.209 Unspecified ovarian cyst, unspecified side; Z98.51 Tubal ligation status; I10 Essential (primary) hypertension; E27.8 Other specified disorders of adrenal gland; D72.829 Elevated white blood cell count, unspecified; Z88.8 Allergy status to other drugs, medicaments and biological substances; Z79.899 Other long term (current) drug therapy
CPT/HCPCS: 36415; 74177; 80048; 80053; 81001; 83605; 83690; 85025; 85651; 86140; 87045; 96361; 96365; 96368; 96375; J0744; J1885; J2270; J2405; J3490; Q9967; 99285-25; J7030

== ENCOUNTER 2018-12-05 11:56 | Emergency (ER) | payer OTHER ==
[~2018-12-05] VITALS: Ht 157.5 cm; Wt 77.2 kg
[~2018-12-05 11:56] MED LIST changes: +CIPR500T94 PO; +METO25TA4 PO; +METR500T PO
[2018-12-05 12:07] VITALS: BP 140/70
--- NOTE | 2018-12-05 13:12 | RAD ---
EXAM: HAND RIGHT 3V. HISTORY: Right hand pain and swelling. COMPARISON: None. FINDINGS: No fractures are identified. There is no radiopaque foreign body or soft tissue gas. Joint spaces and alignment are maintained. IMPRESSION: 1. No cause for pain is identified. Electronically signed by: Jh Lopez MD (12/05/2018 1:09 PM) [facility]
[2018-12-05] MEDS ORDERED: NAPROXEN 500 MG TABLET PO ONE (13:15)
[2018-12-05] MEDS ORDERED: HYDR-3165 PO (13:32)
[2018-12-05] MEDS ORDERED: CEPH-264 PO (13:32)
--- NOTE | 2018-12-05 13:34 | PHYS DOC ---
Past History Past Medical History: Hypertension Past Surgical History: Tubal ligation Smoking: Non-smoker Alcohol Use: None Drug Use: None Adult General Chief Complaint Chief Complaint: HAND PROBLEM HPI HPI 28-year-old female presents with right second digit pain. She began have pain at the base of her right second digit yesterday. The patient has not been anything unusual. She denies any trauma. She was doing some gardening but does not recall trauma, insect sting or bite. The area has swollen over the last 2 days and is now extremely painful. Difficult for her to flex that finger due to the pressure. Her sensation is not affected. She denies any other injuries or complaints. She's never had this before. She has no history of gout. She does have a family history of gout. Review of Systems Review of Systems Constitutional: Denies fever or chills [] Eyes: Denies change in visual acuity, redness, or eye pain [] HENT: Denies nasal congestion or sore throat [] Respiratory: Denies cough or shortness of breath [] Cardiovascular: No additional information not addressed in HPI [] GI: Denies abdominal pain, nausea, vomiting, bloody stools or diarrhea [] : Denies dysuria or hematuria [] Musculoskeletal: Right hand pain[] Integument: Denies rash or skin lesions [] Neurologic: Denies headache, focal weakness or sensory changes [] Endocrine: Denies polyuria or polydipsia [] All other systems were reviewed and found to be within normal limits, except as documented in this note. Current Medications Current Medications Current Medications Medications (Trade) Dose Ordered Sig/Esequiel Start Time Stop Time Status Last Admin Dose Admin Naproxen (Naprosyn) 500 mg 1X ONCE 12/05/18 13:15 12/05/18 13:24 DC 12/05/18 13:14 500 MG Allergies Allergies Allergies Coded Allergies Type Severity Reaction Last Updated Verified lisinopril Allergy Intermediate Hives 05/08/17 Yes Physical Exam Physical Exam Constitutional: Well developed, well nourished, no acute distress, non-toxic appearance. [] HENT: Normocephalic, atraumatic, bilateral external ears normal, oropharynx moist, no oral exudates, nose normal. [] Eyes: PERRLA, EOMI, conjunctiva normal, no discharge. [] Neck: Normal range of motion, no tenderness, supple, no stridor. [] Cardiovascular:Heart rate regular rhythm, no murmur [] Lungs & Thorax: Bilateral breath sounds clear to auscultation [] Abdomen: Bowel sounds normal, soft, no tenderness, no masses, no pulsatile masses. [] Skin: Warm, dry, no erythema, no rash. [] Back: No tenderness, no CVA tenderness. [] Extremities: Tenderness over the base of the right second digit anteriorly. Overlying skin is erythematous and slightly warm. Neurovascularly intact.[] Neurologic: Alert and oriented X 3, normal motor function, normal sensory function, no focal deficits noted. [] Psychologic: Affect normal, judgement normal, mood normal. [] Current Patient Data Vital Signs Vital Signs Date Time Temp Pulse Resp B/P (MAP) Pulse Ox O2 Delivery O2 Flow Rate FiO2 12/05/18 12:07 Room Air 12/05/18 12:07 98.8 20 98 EKG EKG [] Radiology/Procedures Radiology/Procedures [] Impressions: EXAM: HAND RIGHT 3V. HISTORY: Right hand pain and swelling. COMPARISON: None. FINDINGS: No fractures are identified. There is no radiopaque foreign body or soft tissue gas. Joint spaces and alignment are maintained. IMPRESSION: 1. No cause for pain is identified. Electronically signed by: Jh Lopez MD (12/05/2018 1:09 PM) [facility] DICTATED AND SIGNED BY: TRISTON LOPEZ MD DATE: 12/05/18 1309 CC: KAREN NGO DO; ANA BERRIOS MD ~ Course & Med Decision Making Course & Med Decision Making Pertinent Labs and Imaging studies reviewed. (See chart for details) It appears as though the patient has either gout, pseudogout, or cellulitis. It is difficult to tell for sure. I have recommended she take 600 mg of ibuprofen 3 times a day for the next several days. I will also give her Keflex 3 times a day for 7 days. Finally, I will give the patient a short course of [place] 5/325 for her pain. She is stable for discharge at this time. [] Dragon Disclaimer Dragon Disclaimer This electronic medical record was generated, in whole or in part, using a voice recognition dictation system. Departure Departure: Impression: Primary Impression: Cellulitis of right hand Disposition: HOME, SELF-CARE Condition: STABLE Referrals: ANA BERRIOS MD (PCP) Patient Instructions: Cellulitis, [id number] Scripts Cephalexin (KEFLEX) 500 Mg Capsule 1 CAP PO TID for cellulitis, #21 CAP Prov: KAREN NGO DO 12/05/18 Hydrocodone Bit/Acetaminophen (NORCO 5-325 TABLET) 1 Each Tablet 1 TAB PO PRN Q6HRS PRN for PAIN, #10 TAB 0 Refills Prov: KAREN NGO DO 12/05/18 KAREN NGO DO Dec 05, 2018 13:34
== END 2018-12-05 13:39 | disposition home or self-care (01) ==
LOC: ER 11:56
DX: L03.011 Cellulitis of right finger (principal); I10 Essential (primary) hypertension; Z88.8 Allergy status to other drugs, medicaments and biological substances
CPT/HCPCS: 73130; 99284

== ENCOUNTER 2021-01-27 15:48 | Emergency (ER) | payer BC, MEDICAID ==
[~2021-01-27] VITALS: Ht 157.5 cm; Wt 77.2 kg
[~2021-01-27 15:48] MED LIST changes: +CEPH-264 PO; +CLOT15CR23 TP; -CLOT15CR4 TP
[2021-01-27] MEDS ORDERED: ONDANSETRON PF 4 MG/2 ML VIAL. ONE (16:11)
[2021-01-27] MEDS ORDERED: MORPHINE SULFATE 4 MG/ML DISP.SYRIN. IV ONE (16:30)
[2021-01-27 16:39] LABS: BASO # 0.1 x10^3/uL (0.0-0.2); BASO % 1 % (0-3); EOS # 0.1 x10^3/uL (0.0-0.7); EOS % 1 % (0-3); HEMATOCRIT 38.2 % (36.0-47.0); HEMOGLOBIN 13.6 g/dL (12.0-15.5); LYMPH # 2.6 x10^3/uL (1.0-4.8); LYMPH % 26 % (24-48); MEAN CORPUSCULAR HEMOGLOBIN 33 pg (25-35); MEAN CORPUSCULAR HGB CONC 36 g/dL (31-37); MEAN CORPUSCULAR VOLUME 91 fL (79-100); MONO # 0.5 x10^3/uL (0.0-1.1); MONO % 5 % (0-9); NEUT # 6.6 x10^3uL (1.8-7.7); NEUT % 66 % (31-73); PLATELET COUNT 379 x10^3/uL (140-400); RED BLOOD COUNT 4.17 x10^6/uL (3.50-5.40); RED CELL DISTRIBUTION WIDTH 12.6 % (11.5-14.5)
[2021-01-27 16:42] LABS: CALCIUM 8.9 mg/dL (8.5-10.1); CREATININE 0.7 mg/dL (0.6-1.0); GFR 97.6; POTASSIUM 3.7 mmol/L (3.5-5.1)
[2021-01-27] MEDS ORDERED: ONDANSETRON PF 4 MG/2 ML VIAL. IVP ONE ×2 (16:45→18:00)
[2021-01-27] MEDS ORDERED: IV NORMAL SALINE 1,000ML 1,000 ML IV ONE (16:45)
[2021-01-27 16:49] LABS: ALBUMIN 4.4 g/dL (3.4-5.0); ALBUMIN/GLOBULIN RATIO 1.3 (1.0-1.7); TOTAL BILIRUBIN 0.6 mg/dL (0.2-1.0); TOTAL PROTEIN 7.8 g/dL (6.4-8.2)
[2021-01-27 18:04] VITALS: BP 150/84
--- NOTE | 2021-01-27 18:18 | RAD ---
US ABDOMEN LIMITED History: Reason: RIGHT SIDED ABDOMINAL PAIN / Spl. Instructions: / History: Comparison: None. Technique: Transabdominal ultrasound images are obtained of the right upper quadrant. Findings: Liver is normal in echogenicity. Right hepatic lobe measures 13.5 cm. Portal flow is hepatopedal. No cholelithiasis. No gallbladder wall thickening. No pericholecystic fluid. Common bile duct measures 3 mm in diameter. Visualized pancreas not well seen due to overlying bowel gas. The right kidney measures 10.9 x 3.4 x 3.7 cm. No hydronephrosis. Visualized portions of the aorta and IVC have normal caliber. IMPRESSION: 1. Unremarkable right upper quadrant ultrasound. Electronically signed by: Giovanni Atkinson DO (01/27/2021 6:16 PM) [facility]
[2021-01-27] MEDS ORDERED: ONDA4TAB7 PO (18:48)
--- NOTE | 2021-01-27 18:49 | PHYS DOC ---
Past History Past Medical History: Hypertension (VASQUEZ MONTANA APRN) Past Surgical History: Tubal ligation (VASQUEZ MONTANA APRN) Smoking: Non-smoker Alcohol Use: Occasionally Drug Use: None (VASQUEZ MONTANA APRN) General Adult EDM: Chief Complaint: ABDOMINAL PAIN HPI: HPI: Patient is a 30-year-old female presents with right upper quadrant pain. Patient states she has an appointment on with her PCP for imaging due to her right upper quadrant pain. Patient states "my PCP supposed to be working yet for gallbladder issue". "I came in today because I was in pain". Denies nausea/vomiting/diarrhea. Denies fever. History of hypertension. (VASQUEZ MONTANA APRN) Review of Systems: Review of Systems: Constitutional: Denies fever or chills Eyes: Denies change in visual acuity HENT: Denies nasal congestion or sore throat Respiratory: Denies cough or shortness of breath Cardiovascular: Denies chest pain or edema GI: Reports right upper quadrant abdominal pain. Denies nausea, vomiting, bloody stools or diarrhea : Denies dysuria Musculoskeletal: Denies back pain or joint pain Integument: Denies rash Neurologic: Denies headache, focal weakness or sensory changes Endocrine: Denies polyuria or polydipsia Lymphatic: Denies swollen glands Psychiatric: Denies depression or anxiety (VASQUEZ MONTANA APRN) Current Medications: Current Meds: Current Medications Medications (Trade) Dose Ordered Sig/Esequiel Start Time Stop Time Status Last Admin Dose Admin Morphine Sulfate (Morphine 4mg Syringe) 4 mg 1X ONCE 01/27/21 16:30 01/27/21 16:31 DC 01/27/21 17:57 4 MG Ondansetron HCl (Zofran) 4 mg 1X ONCE 01/27/21 18:00 01/27/21 18:01 DC 01/27/21 18:04 4 MG Sodium Chloride 1,000 ml @ 1,000 mls/hr 1X ONCE 01/27/21 16:45 01/27/21 17:44 DC 01/27/21 17:57 1,000 MLS/HR (VASQUEZ MONTANA APRN) Allergies: Allergies: Allergies Coded Allergies Type Severity Reaction Last Updated Verified lisinopril Allergy Intermediate Hives 05/08/17 Yes (VASQUEZ MONTANA APRN) Physical Exam: PE: Constitutional: Well developed, well nourished, no acute distress, non-toxic appearance. [] HENT: Normocephalic, atraumatic, bilateral external ears normal, oropharynx moist, no oral exudates, nose normal. [] Eyes: PERRLA, EOMI, conjunctiva normal, no discharge. [] Neck: Normal range of motion, no tenderness, supple, no stridor. [] Cardiovascular:Heart rate regular rhythm, no murmur [] Lungs & Thorax: Bilateral breath sounds clear to auscultation [] Abdomen: Bowel sounds normal, right upper quadrant tenderness, no masses Skin: Warm, dry, no erythema, no rash. [] Back: No tenderness, no CVA tenderness. [] Extremities: No tenderness, no cyanosis, no clubbing, ROM intact, no edema. [] Neurologic: Alert and oriented X 3, normal motor function, normal sensory function, no focal deficits noted. [] Psychologic: Affect normal, judgement normal, mood normal. [] (VASQUEZ MONTANA APRN) Current Patient Data: Labs: Laboratory Tests Test 01/27/21 16:05 01/27/21 16:17 Lipase 84 U/L (73-393) White Blood Count 10.0 x10^3/uL (4.0-11.0) Red Blood Count 4.17 x10^6/uL (3.50-5.40) Hemoglobin 13.6 g/dL (12.0-15.5) Hematocrit 38.2 % (36.0-47.0) Mean Corpuscular Volume 91 fL (79-100) Mean Corpuscular Hemoglobin 33 pg (25-35) Mean Corpuscular Hemoglobin Concent 36 g/dL (31-37) Red Cell Distribution Width 12.6 % (11.5-14.5) Platelet Count 379 x10^3/uL (140-400) Neutrophils (%) (Auto) 66 % (31-73) Lymphocytes (%) (Auto) 26 % (24-48) Monocytes (%) (Auto) 5 % (0-9) Eosinophils (%) (Auto) 1 % (0-3) Basophils (%) (Auto) 1 % (0-3) Neutrophils # (Auto) 6.6 x10^3uL (1.8-7.7) Lymphocytes # (Auto) 2.6 x10^3/uL (1.0-4.8) Monocytes # (Auto) 0.5 x10^3/uL (0.0-1.1) Eosinophils # (Auto) 0.1 x10^3/uL (0.0-0.7) Basophils # (Auto) 0.1 x10^3/uL (0.0-0.2) Sodium Level 137 mmol/L (136-145) Potassium Level 3.7 mmol/L (3.5-5.1) Chloride Level 101 mmol/L (98-107) Carbon Dioxide Level 27 mmol/L (21-32) Anion Gap 9 (6-14) Blood Urea Nitrogen 14 mg/dL (7-20) Creatinine 0.7 mg/dL (0.6-1.0) Estimated GFR (Cockcroft-Gault) 97.6 BUN/Creatinine Ratio 20 (6-20) Glucose Level 82 mg/dL (70-99) Calcium Level 8.9 mg/dL (8.5-10.1) Total Bilirubin 0.6 mg/dL (0.2-1.0) Aspartate Amino Transferase (AST) 22 U/L (15-37) Alanine Aminotransferase (ALT) 41 U/L (14-59) Alkaline Phosphatase 80 U/L (46-116) Total Protein 7.8 g/dL (6.4-8.2) Albumin 4.4 g/dL (3.4-5.0) Albumin/Globulin Ratio 1.3 (1.0-1.7) Vital Signs: Vital Signs Date Time Temp Pulse Resp B/P (MAP) Pulse Ox O2 Delivery O2 Flow Rate FiO2 01/27/21 18:04 97 16 150/84 (106) 100 Room Air (VASQUEZ MONTANA APRN) EKG: EKG: [] (VASQUEZ MONTANA APRN) Radiology/Procedures: Radiology/Procedures: []US ABDOMEN LIMITED History: Reason: RIGHT SIDED ABDOMINAL PAIN / Spl. Instructions: / History: Comparison: None. Technique: Transabdominal ultrasound images are obtained of the right upper quadrant. Findings: Liver is normal in echogenicity. Right hepatic lobe measures 13.5 cm. Portal flow is hepatopedal. No cholelithiasis. No gallbladder wall thickening. No pericholecystic fluid. Common bile duct measures 3 mm in diameter. Visualized pancreas not well seen due to overlying bowel gas. The right kidney measures 10.9 x 3.4 x 3.7 cm. No hydronephrosis. Visualized portions of the aorta and IVC have normal caliber. IMPRESSION: 1. Unremarkable right upper quadrant ultrasound. Electronically signed by: Giovanni Atkinson DO (01/27/2021 6:16 PM) [facility] (VASQUEZ MONTANA APRN) Heart Score: C/O Chest Pain: No Risk Factors: Risk Factors: DM, Current or recent (<one month) smoker, HTN, HLP, family history of CAD, obesity. Risk Scores: Score 0 - 3: 2.5% MACE over next 6 weeks - Discharge Home Score 4 - 6: 20.3% MACE over next 6 weeks - Admit for Clinical Observation Score 7 - 10: 72.7% MACE over next 6 weeks - Early Invasive Strategies (VASQUEZ MONTANA APRN) Course & Med Decision Making: Course & Med Decision Making Pertinent Labs and Imaging studies reviewed. (See chart for details) [] 30-year-old female presents with right upper quadrant pain. Patient states she is supposed to be seen by her PCP and worked up for gallbladder issue. Patient given 4 mg of morphine. Ultrasound was unremarkable. All labs unremarkable. Discussed results with patient. Explained to patient that she needs to keep her follow-up appointment with her PCP. Patient can take ibuprofen for pain. Sending patient home with Zofran for nausea. Patient instructed return to emergency room if her symptoms are worse. Patient is hemodynamically stable upon disposition. (VASQUEZ MONTANA APRN) Course & Med Decision Making Did not see or evaluate patient. 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 (PRATEEK RHODES MD) Dragon Disclaimer: Dragon Disclaimer: This electronic medical record was generated, in whole or in part, using a voice recognition dictation system. (VASQUEZ MONTANA APRN) Departure Departure: Impression: Primary Impression: RUQ abdominal pain Disposition: HOME / SELF CARE / HOMELESS Condition: STABLE Referrals: ANA BERRIOS MD (PCP) Patient Instructions: Abdominal Pain, [id number] Additional Instructions: You are seen emergency room for right upper quadrant pain. Ultrasound was negative for any acute abnormalities. You need to keep your appointment you have scheduled with your PCP for further testing of your gallbladder. Medicine you home with some Zofran in case you need it for nausea. You can take Tylenol at home for discomfort. Return emergency room if you have worsening symptoms or concerns. EMERGENCY DEPARTMENT GENERAL DISCHARGE INSTRUCTIONS Thank you for coming to [facility] (ED) today and trusting us with you care. We trust that you had a positivie experience in our Emergency Department. If you wish to speak to the department management, you may call the director at [phone]. YOUR FOLLOW UP INSTRUCTIONS ARE FOLLOWS: 1. Do you have a private Doctor? If you do not have a private doctor, please ask for a resource list of physicians or clinics that may be able to assist you with follow up care. 2. The Emergency Physician has interpreted your x-rays. The X-Ray specialist will also review them. If there is a change in the findings, you will be notified in 48 hours when at all possible. 3. A lab test or culture has been done, your results will be reviewed and you will be notified if you need a change in treatment. ADDITIONAL INSTRUCTIONS AND INFORMATION: 1. Your care today has been supervised by a physician who is specially trained in emergency care. Many problems require more than one evaluation for a complete diagnosis and treatment. We recommend that you schedule your follow up appointment as recommended to ensure complete treatment of you illness or injury. If you are unable to obtain follow up care and continue to have a problem, or if your condition worsens, we recommend that you return to the ED. 2. We are not able to safely determine your condition over the phone nor are we able to give sound medical advice over the phone. For these safety reasons, if you call for medical advice we will ask you to come to the ED for further evaluation. 3. If you have any questions regarding these discharge instructions please call the ED at [phone]. SAFETY INFORMATION: In the interest of safety, wellness, and injury prevention; we encourage you to wear your sealbelt, if you smoke; quite smoking, and we encourage family to use a protective helmet for bicycling and other sporting events that present an increased risk for head injury. IF YOUR SYMPTOMS WORSEN OR NEW SYMPTOMS DEVELOP, OR YOU HAVE CONCERNS ABOUT YOUR CONDITION; OR IF YOUR CONDITION WORSENS WHILE YOU ARE WAITING FOR YOUR FOLLOW UP APPOINTMENT; EITHER CONTACT YOUR PRIMARY CARE DOCTOR, THE PHYSICIAN WHOSE NAME AND NUMBER YOU WERE GIVEN, OR RETURN TO THE ED IMMEDIATELY. Scripts Ondansetron Hcl (ZOFRAN) 4 Mg Tablet 4 MG PO TID PRN PRN for NAUSEA for 7 Days, #21 TAB Prov: VASQUEZ MONTANA APRN 01/27/21 VASQUEZ MONTANA APRN Jan 27, 2021 18:49 PRATEEK RHODES MD Jan 27, 2021 23:36
== END 2021-01-27 19:05 | disposition home or self-care (01) ==
LOC: ER 15:48
DX: R10.11 Right upper quadrant pain (principal); I10 Essential (primary) hypertension; Z88.8 Allergy status to other drugs, medicaments and biological substances; Z98.51 Tubal ligation status
CPT/HCPCS: 36415; 76705; 80053; 83690; 85025; 96361; 96374; 96375; 99284; J2270; J2405; J7030